=== PATIENT | male | born 2000 | race Caucasian/White ===

== ENCOUNTER 2023-10-15 15:36 | Emergency (ER) | payer BC ==
[2023-10-15 15:44] VITALS: BP 124/95; PULSE 115; RESP 18; TEMP 98; BMI 19.5
[2023-10-15] MEDS ORDERED: KETOROLAC TROMETHAMINE 30 MG/1 ML VIAL IM ONE (16:43)
== END 2023-10-15 18:00 | disposition home or self-care (01) ==
LOC: JER 15:36
DX: M54.9 Dorsalgia, unspecified (principal); R00.0 Tachycardia, unspecified
CPT/HCPCS: 71046-TC-FY; 99283-25